=== PATIENT | female | born 1960 | race Caucasian/White ===

== ENCOUNTER 2024-12-23 09:39 | Emergency (ER) | payer OTHER ==
[~2024-12-23] VITALS: Ht 160 cm; Wt 63.5 kg
[2024-12-23 10:24] LABS: PLATELET COUNT (AUTO) 272 K/uL (150-450); RED BLOOD CELL COUNT(AUTO) 4.97 MIL/uL (4.0-5.2); RED CELL DISTRIBUTION WIDTH 14.5 % (11.5-15.0); WHITE BLOOD COUNT (AUTO) 7.1 K/uL (4.3-11.0)
[2024-12-23 10:32] LABS: CALCIUM, SERUM 9.3 mg/dL (8.5-10.1); CREATININE 0.7 mg/dL (0.6-1.3); SODIUM SERUM 139 mmol/L (136-145); UREA NITROGEN, BLOOD 14 mg/dL (7-18)
[2024-12-23 10:45] LABS: ASPARTATE AMINOTRANSFERASE 20 U/L (15-37); NT-PRO BNP 220 pg/mL (0-125); TOTAL PROTEIN, SERUM 7.4 g/dL (6.4-8.2)
[2024-12-23] MEDS ORDERED: ACETAMINOPHEN 325 MG TABLET ONE (11:46)
[2024-12-23] MEDS: ACETAMINOPHEN 325 MG TABLET PO ONE (11:49)
[2024-12-23 12:34] VITALS: BP 111/64; TEMP 98.2; O2SAT 100
== END 2024-12-23 12:33 | disposition home or self-care (01) ==
LOC: ER 09:39
DX: J04.0 Acute laryngitis (principal); R05.9 Cough, unspecified; R06.02 Shortness of breath; J45.909 Unspecified asthma, uncomplicated; Z20.822 Contact with and (suspected) exposure to COVID-19
CPT/HCPCS: 99285; 71045; 87426; 93005; 87804 ×2; 85025; 80048; 80076; 36415; 84484; 83880; J8540 ×2